=== PATIENT | male | born 1945 | race Caucasian/White ===

== ENCOUNTER 2016-09-10 12:59 | Emergency (ER) | payer MEDICARE ==
[~2016-09-10] VITALS: Ht 182.9 cm; Wt 103.0 kg
[~2016-09-10 12:59] MED LIST: ASPI1TAB69 PO; BACT800T5 PO; CLIN1CAP5 PO; LEVO25TA4 PO; METF500T PO; RANI150C PO; TIOT1AER2 INH
[2016-09-10 13:08] VITALS: BP 129/79; PULSE 91; RESP 16; TEMP 98.2; O2SAT 94
[2016-09-10 13:50] VITALS: BP 126/66; PULSE 83; RESP 20; O2SAT 95
--- NOTE | 2016-09-10 14:09 | PD ---
HPI Chief Complaint: Cold / Flu Symptoms Time Seen by Provider: 13:46 Travel History International Travel<30 days: No Contact w/Intl Traveler<30days: No Traveled to known affect area: No History of Present Illness HPI This patient complains of shortness of breath and congestion and sore throat. He feel like he lost his voice yesterday. No productive cough or fever or chest pain. He does have COPD and uses Spiriva. Quit smoking a long time ago. Severity of symptoms is moderate. No alleviating factors. Duration 2 days PFSH Past Medical History Hx Anticoagulant Therapy: Yes (BABY ASA QOD) Cancer: Yes (Bladder) Cardiovascular Problems: Yes (CHOL) High Cholesterol: Yes COPD: Yes Diabetes: Yes (Type 2) Patient Takes Glucophage: Yes Diminished Hearing: No Respiratory: Yes (COPD) Thyroid Disease: Yes (Hypo-) Tetanus Vaccination: < 5 Years Influenza Vaccination: Yes Past Surgical History Genitourinary Surgery: Yes (Bladder) Social History Alcohol Use: No Tobacco Use: No Substance Use: No Allergies-Medications (Allergen,Severity, Reaction): Coded Allergies: Codeine (Verified Adverse Reaction, Severe, Hypotension, 09/10/16) Demerol (Verified Adverse Reaction, Severe, Hypotension, 09/10/16) Dilaudid (Verified Adverse Reaction, Severe, Hypotension, 09/10/16) Sulfa (Verified Adverse Reaction, Severe, Generalized body pain, 09/10/16) Versed (Verified Adverse Reaction, Severe, Hypotension, 09/10/16) Reported Meds & Prescriptions Reported Meds & Active Scripts Active Reported Ranitidine (Ranitidine HCl) 150 Mg Cap 150 Mg PO BID Aspirin 81 Mg Tabdr 81 Mg PO DAILY Metformin (Metformin HCl) 500 Mg Tab 500 Mg PO BID With a meal Spiriva Respimat Inh (Tiotropium Inh) 1.25 Mcg/Act Aero 2 Puff INH DAILY 1.25 mcg = 1 inhalation Levothyroxine (Levothyroxine Sodium) 25 Mcg Tab 25 Mcg PO DAILY Review of Systems General / Constitutional: No: Fever Eyes: No: Visual changes HENT: Positive: Sore Throat, Congestion, No: Headaches Cardiovascular: No: Chest Pain or Discomfort Respiratory: Positive: Shortness of Breath Gastrointestinal: No: Abdominal Pain Genitourinary: No: Dysuria Musculoskeletal: No: Pain Skin: No Rash Neurologic: No: Weakness Psychiatric: No: Depression Endocrine: No: Polydipsia Hematologic/Lymphatic: No: Easy Bruising Physical Exam Narrative GENERAL: Well-nourished, well-developed patient in no apparent distress. SKIN: Warm and dry. HEAD: Atraumatic. Normocephalic. EYES: Pupils equal and round. No scleral icterus. No injection or drainage. ENT: No nasal bleeding or discharge. Mucous membranes pink and moist. Throat is erythematous without exudate. NECK: Trachea midline. No JVD. CARDIOVASCULAR: Regular rate and rhythm. No murmur appreciated. RESPIRATORY: No accessory muscle use. Minor rhonchi without crackles or wheezes. Breath sounds equal bilaterally. GASTROINTESTINAL: Abdomen soft, non-tender, nondistended. Hepatic and splenic margins not palpable. MUSCULOSKELETAL: No obvious deformities. No clubbing. No cyanosis. No edema. NEUROLOGICAL: Awake and alert. No obvious cranial nerve deficits. Motor grossly within normal limits. Normal speech. PSYCHIATRIC: Appropriate mood and affect; insight and judgment normal. Data Data Last Documented VS Vital Signs Date Time Temp Pulse Resp B/P Pulse Ox O2 Delivery O2 Flow Rate FiO2 09/10/16 13:50 20 95 Room Air 09/10/16 13:50 83 126/66 09/10/16 13:08 98.2 Orders Group A Rapid Strep Screen (09/10/16 14:04) Chest, Single Ap (09/10/16 ) Electrocardiogram (09/10/16 ) Albuterol-Ipratropium Neb (Duoneb Neb) (09/10/16 14:15) Strep Culture (Group A) (09/10/16 14:10) Arterial Blood Gas (Abg) (09/10/16 ) Labs Laboratory Tests Test 09/10/16 14:50 Blood Gas Puncture Site RT RADIAL Blood Gas Patient Temperature 98.6 Blood Gas HCO3 23 mmol/L Blood Gas Base Excess -0.7 mmol/L Blood Gas Oxygen Saturation 90 % Arterial Blood pH 7.44 Arterial Blood Partial 34 mmHG Pressure CO2 Arterial Blood Partial 64 mmHG Pressure O2 Arterial Blood Oxygen Content 20.3 Vol % Arterial Blood 1.7 % Carboxyhemoglobin Arterial Blood Methemoglobin 1.1 % Blood Gas Hemoglobin 16.1 G/DL Oxygen Delivery Device ROOM AIR Blood Gas Inspired Oxygen 21 % [facility] Medical Decision Making Medical Screen Exam Complete: Yes Emergency Medical Condition: Yes Medical Record Reviewed: Yes Differential Diagnosis COPD exacerbation, bronchitis, laryngitis, pneumonia Narrative Course I have reviewed the patient's electronic medical record. I reviewed his EKG which shows sinus rhythm and no ST elevation or ectopy I reviewed his chest x-ray which is normal Rapid strep screen is negative I gave him a nebulizer treatment Patient lungs seem clear. He does not seem labored. Saturations are variable between 90 and 95. Most commonly sitting at 93 No clinical suspicion of ACS Stable for outpatient follow-up I believe he has a laryngitis/bronchitis on top of his COPD I don't see indication for antibiotics, this is likely viral Review the significance of all these findings with the patient. We discussed risks and benefits and alternatives of workup for PE. I don't have clinical suspicion of PE. He doesn't look dyspneic and has had no tachycardia or chest pain or hemoptysis. [place] he says that his saturation is always 92% when checked. He does not want to go through a PE workup. As noted, my clinical suspicion is low and he really looks like he is about his baseline saturation. I did a room air ABG which shows PO2 of 64 He wants to go home and thinks she will do okay. I did prescribe him an albuterol inhaler to go along with his Spiriva and I wrote him 5 days of prednisone I advised him to return if he worsens in any way and he agrees to do so Diagnosis Primary Impression: COPD with exacerbation Additional Impression: Laryngitis, acute Additional Instructions: The patient was advised to follow up with their physician and return if they worsen. Rest today Prednisone for 5 days Albuterol inhaler as needed Med/Other Pt SpecificInfo: Prescription(s) given Disposition: 01 DISCHARGE HOME Condition: Stable Devonte Mondragon MD Sep 10, 2016 14:09
[2016-09-10] MEDS ORDERED: RESP: ALBUTEROL 2.5 MG/IPRATROPIUM 0.5 MG NEB (SCH) NEB ONE (14:15)
--- NOTE | 2016-09-10 14:30 | RADHPO ---
EXAM DATE/TIME: 09/10/2016 14:24 [place] COMPARISON: No previous studies available for comparison. INDICATIONS : Short of breath MEDICAL HISTORY : Chronic obstructive pulmonary disease. SURGICAL HISTORY : None. ENCOUNTER: Initial ACUITY: 1 day PAIN SCORE: 0/10 LOCATION: Bilateral chest FINDINGS: A single view of the chest demonstrates the lungs to be symmetrically aerated without evidence of mas s, infiltrate or effusion. The cardiomediastinal contours are unremarkable. Osseous structures are intact. CONCLUSION: 1. No acute cardiopulmonary disease. Milton Gutierrez MD on September 10, 2016 at 14:28 Board Certified Radiologist. This report was verified electronically.
[2016-09-10 14:55] LABS: BLOOD GAS BASE EXCESS -0.7 mmol/L (-2-2); BLOOD GAS CARBOXYHEMOGLOBIN 1.7 % (0-4); BLOOD GAS HCO3 23 mmol/L (22-26); BLOOD GAS METHEMOGLOBIN 1.1 % (0-2); BLOOD GAS O2 HGB SATURATION 90 % (90-100); BLOOD GAS OXYGEN CONTENT 20.3 Vol % (12.0-20.0); BLOOD GAS PCO2 34 mmHG (38-42); BLOOD GAS PO2 64 mmHG (61-120); BLOOD GAS TOTAL HGB 16.1 G/DL (12.0-16.0); CRITICAL VALUE NO; DRAW SITE RT RADIAL; FIO2 21 %; NUMBER OF ARTERIAL PUNCTURES 1; OXYGEN DEVICE ROOM AIR; STAT YES; TEMP CORR TO 98.6; ULNAR PULSE PRESENT
[2016-09-10] MEDS ORDERED: PRED20 PO (15:32)
[2016-09-10] MEDS ORDERED: VENTAER INH (15:32)
--- NOTE | 2016-09-13 23:30 | EKG ---
Date Performed: 09/10/2016 Time Performed: 14:12:48 PTAGE: 71 years EKG: Sinus rhythm Short VT interval Low QRS voltages in precordial leads Borderline ECG NO PREVIOUS TRACING DOCTOR: Momo Hinojosa Interpretating Date/Time 09/13/2016 23:29:02
== END 2016-09-10 15:44 | disposition home or self-care (01) ==
LOC: PHED 12:59
DX: J44.1 Chronic obstructive pulmonary disease with (acute) exacerbation (principal); J04.0 Acute laryngitis; E78.00 Pure hypercholesterolemia, unspecified; E11.9 Type 2 diabetes mellitus without complications; R94.31 Abnormal electrocardiogram [ECG] [EKG]; Z79.01 Long term (current) use of anticoagulants
CPT/HCPCS: 36600; 71010; 82805; 87081; 87880; 93005; 94664